=== PATIENT | female | born 1970 | race Caucasian/White ===

== ENCOUNTER 2017-03-08 06:17 | Emergency (ER) | payer OTHER ==
[2017-03-08 06:23] VITALS: BP 109/62; PULSE 82; TEMP 99.1; BMI 20.1
--- NOTE | 2017-03-08 06:54 | PDOC ---
History of Present Illness - General History Source: Patient Exam Limitations: No Limitations - History of Present Illness Initial Comments: 03/08/17 06:49 This is a 46-year-old female who comes in complaining of bleeding from her left ear. Patient denies any trauma to the ear. Patient said that as a child she had a long history of chronic otitis media however has little to said has not been a problem. Patient denies any recent upper respiratory tract infection. Patient said that her ear has been uncomfortable for the last couple a days but not painful. Patient said that shortly after that you begin to bleed she had acute onset of a migraine type headache that was associated with some vertigo and nausea.. Patient denies any vertigo at this time but is still complaining of some mild nausea and the headache. Patient denies any fevers or chills. Patient denies being on any blood thinners and says she is otherwise healthy. Patient denies any trauma to her head or ear. PAST MEDICAL HISTORY: no significant history PAST SURGICAL HISTORY: no significant history FAMILY HISTORY: no pertinant history SOCIAL HISTORY: Pt lives with family and is employed. MEDICATIONS: reviewed ALLERGIES: As per nursing notes Review of Systems General: No fevers or chills, no weakness, no weight loss HEENT: No change in vision. No sore throat,. No ear pain CardioVascular: No chest pain or shortness of breath Respiratory:No cough, or wheezing. Gastrointestinal: no nausea, vomitting, diarrhea or constipation, No rectal bleeding Genitourinary: No dysuria, hematuria, or frequency Musculoskeletal: No joint or muscle pain or swelling Neurologic: No headache, vertigo, dizziness or loss of consciousness Psychiatric: nor depression Skin: No rashes or easy bruising Endocrine: no increased thirst or abnormal weight change Allergic: no skin or latex allergy All other systems reviewed and normal GENERAL: The patient is awake, alert, and fully oriented, in no acute distress. HEAD: Normal with no signs of trauma. EARS: Left ear there is fresh blood with a blood clot in the external canal. Attempted to clean out the blood but it continues to come into the canal from behind the tympanic membrane. Unable to visualize the tympanic membrane secondary to the blood. Right tympanic membrane and external canal is normal. EYES: Pupils equal, round and reactive to light, extraocular movements intact, sclera anicteric, conjunctiva clear. EXTREMITIES: Normal range of motion, no edema. NEUROLOGICAL: Normal speech, normal gait. grossly intact PSYCH: Normal mood, normal affect. SKIN: Warm, Dry, normal turgor, no rashes or lesions noted. <Rudy Madison I - Last Filed: 03/08/17 06:49> <Anival Mast S - Last Filed: 03/08/17 08:54> - General Chief Complaint: Ear Problem Stated Complaint: LF EAR BLEEDING Time Seen by Provider: 03/08/17 06:40 Past History - Past Medical History Cancer: Yes (H/O CERVICAL CA) COPD: No - Surgical History Abdominal Surgery: Yes (RADICAL HYSTERECTOMY) - Suicide/Smoking/Psychosocial Hx Smoking History: Unknown if ever smoked Have you smoked in the past 12 months: No Number of Cigarettes Smoked Daily: 0 Information on smoking cessation initiated: No 'Breaking Loose' booklet given: 02/08/16 Hx Alcohol Use: No Drug/Substance Use Hx: No Substance Use Type: None <Rudy Madison I - Last Filed: 03/08/17 06:49> <Anival Mast S - Last Filed: 03/08/17 08:54> - Past Medical History Allergies/Adverse Reactions: Allergies Allergy/AdvReac Type Severity Reaction Status Date / Time No Known Allergies Allergy Verified 02/08/16 16:06 Home Medications: Ambulatory Orders Oxycodone HCl 10 mg PO TID 02/08/16 Sulfamethoxazole/Trimethoprim [Bactrim Ds Tablet] 1 each PO BID #14 tablet 03/08 *Physical Exam - Vital Signs Last Vital Signs Temp Pulse Resp BP Pulse Ox 99.1 F 82 14 109/62 98 03/08/17 06:20 03/08/17 06:20 03/08/17 06:20 03/08/17 06:20 03/08/17 06:20 <Rudy Madison I - Last Filed: 03/08/17 06:49> - Vital Signs Last Vital Signs Temp Pulse Resp BP Pulse Ox 99.1 F 82 14 109/62 98 03/08/17 06:20 03/08/17 06:20 03/08/17 06:20 03/08/17 06:20 03/08/17 06:20 <Anival Mast S - Last Filed: 03/08/17 08:54> Medical Decision Making - Medical Decision Making Patient endorsed to me by Dr Grant at shift change at 7 am. Patient alert, oriented x3 ambulatory in minimal distress My exam focused : l ear dry clogge blood in the left ear canal No signs of trauma, neuro intact. Awaiting for the CT as ordered by previuos physician <Anival Mast S - Last Filed: 03/08/17 08:54> *DC/Admit/Observation/Transfer <Rudy Madison I - Last Filed: 03/08/17 06:49> <Anival Mast S - Last Filed: 03/08/17 08:54> Diagnosis at time of Disposition: Bleeding from left ear - Discharge Dispostion Condition at time of disposition: Good - Referrals Referrals: Luba Waters [Primary Care Provider] - - Patient Instructions Printed Discharge Instructions: DI for Otitis Externa Additional Instructions: Follow up with your ENT MD. Avoid any Q tips in the ear - Post Discharge Activity
[2017-03-08] MEDS ORDERED: SULFAMETHOXAZOLE/TRIMETHOPRIM 800MG/160MG D.S. TABLET PO ONE (08:50)
[2017-03-08] MEDS ORDERED: SULFAMETHOXAZOLE/TRIMETHOPRIM 800MG/160MG D.S. TABLET ONE (08:51)
== END 2017-03-08 08:59 | disposition home or self-care (01) ==
LOC: FER 06:17
DX: H92.22 Otorrhagia, left ear (principal)
CPT/HCPCS: 70450-TC; 99282-25

== ENCOUNTER 2018-06-04 16:12 | Emergency (ER) | payer OTHER ==
[2018-06-04 16:27] VITALS: BP 107/76; PULSE 92; TEMP 97.3; BMI 21.3
--- NOTE | 2018-06-04 17:09 | PDOC ---
History of Present Illness - General Chief Complaint: Injury Stated Complaint: HEADACHE DIZZINESS NECK PAIN LEFT WRIST PAIN Time Seen by Provider: 06/04/18 16:34 - History of Present Illness Initial Comments: 48yo F with PMH of migraines and chronic back pain presenting with headache. Patient states she was outside six days ago when a large piece of ice fell on top of her head, left shoulder, and left forearm. She left the area, eager to go home, and about two hours after the incident, felt nauseous and had one episode of nonbloody nonbilious vomiting. Patient describes her headache as a "pressure" and rated at 6/10. She has taken ibuprofen and fioricet at home which has mildly improved her pain, but she decided to come into the ED because "I don't feel right." Denies focal neurologic deficits. She says this headache is different from her migraines in that her migraines are more severe. Patient also endorses neck pain which she has had chronically but is now worse after the ice falling on her. She also has left forearm pain as a result of where the ice hit her. Patient reports taking flexeril and oxycodone for her chronic back pain. Denies fevers, chills, chest pain, or shortness of breath. Past History - Past Medical History Allergies/Adverse Reactions: Allergies Allergy/AdvReac Type Severity Reaction Status Date / Time No Known Allergies Allergy Verified 06/04/18 16:13 Home Medications: Ambulatory Orders Oxycodone HCl 10 mg PO TID 02/08/16 Cyclobenzaprine HCl [Flexeril 10 mg] 10 mg PO TID 06/04/18 Cancer: Yes (H/O CERVICAL CA) COPD: No Other medical history: BACK PROBLEM - Surgical History Abdominal Surgery: Yes (RADICAL HYSTERECTOMY) - Suicide/Smoking/Psychosocial Hx Smoking History: Current every day smoker Have you smoked in the past 12 months: Yes Number of Cigarettes Smoked Daily: 10 Information on smoking cessation initiated: No 'Breaking Loose' booklet given: 02/08/16 Hx Alcohol Use: No Drug/Substance Use Hx: No Substance Use Type: None Review of Systems - Review of Systems Comments:: Constitutional: no fever, no chills HEENT: no throat pain, no dysphagia Cardiovascular: no chest pain, no palpitations Respiratory: no cough, no shortness of breath Gastrointestinal: no abdominal pain, no nausea Genitourinary: no dysuria, no frequency Musculoskeletal: +neck pain, +back pain Skin: no rash, no itching Neurologic: +headache, +lightheaded *Physical Exam - Vital Signs Last Vital Signs Temp Pulse Resp BP Pulse Ox 97.3 F L 92 H 16 107/76 100 06/04/18 16:13 06/04/18 16:13 06/04/18 16:13 06/04/18 16:13 06/04/18 16:13 - Physical Exam Comments: General: Awake, alert, and fully oriented, in no acute distress Head: No signs of trauma Eyes: EOMI, sclera anicteric ENT: Moist mucus membranes Neck: Normal ROM, supple Lungs: Lungs clear, Normal breath sounds Cardio: Regular rhythm, S1 and S2 present Abdomen: Soft, nontender. No guarding, no rebound, no masses Extremities: Normal range of motion, Distal pulses present SKIN: Warm, Dry, normal turgor Neurologic: Cranial nerves II through XII intact. Normal reflexes, speech, sensation, strength, coordination, and gait. Moderate Sedation - Procedure Monitoring Vital Signs: Procedure Monitoring Vital Signs Temperature 97.3 F L 06/04/18 16:13 Pulse Rate 92 H 06/04/18 16:13 Respiratory Rate 16 06/04/18 16:13 Blood Pressure 107/76 06/04/18 16:13 O2 Sat by Pulse Oximetry (%) 100 06/04/18 16:13 Medical Decision Making - Medical Decision Making 48yo F with PMH of migraines and chronic back pain presenting with headaches. DDX including but not limited to migraine headache, tension headache, brain bleed, post-concussive syndrome CT Head/C-spine ordered 975 Tylenol Lidocaine patch 06/04/18 16:58 Patient just got back from CT scan because technical support director is not readily available after 4pm and needed to be called in. Lidocaine patch application was delayed due to this reason. Patch is not applied. 06/04/18 18:31 CT head negative for acute pathology, per radiology report. 06/04/18 18:48 CT C-spine negative for acute pathology, per radiology report. Plan to discharge 06/04/18 19:07 *DC/Admit/Observation/Transfer Diagnosis at time of Disposition: Headache Qualifiers: Headache type: post-traumatic Headache chronicity pattern: acute headache Intractability: intractable Qualified Code(s): G44.311 - Acute post-traumatic headache, intractable - Discharge Dispostion Condition at time of disposition: Stable - Referrals Referrals: [facility] [Provider Group] - Patient Instructions Printed Discharge Instructions: DI for Post-traumatic Headache Additional Instructions: You came to the ED for a headache. CT imaging of your head and neck did not show acute pathology. You can take [id number] tylenol or motrin for your headache. Follow the instructions on the medication bottle. Follow-up with you primary care physician in 5-7 days to discuss this ED visit and to further evaluate your headache. Your care is not complete until you do so. Call and make an appointment. Medical attention is required if: you experience persistent symptoms, severe headache, have a seizure, or have focal numbness or weakness. If you think you are having an emergency, call for emergency medical services or present to the emergency department right away - Post Discharge Activity Forms/Work/School Notes: Back to Work
[2018-06-04] MEDS ORDERED: LIDOCAINE 5% TOPICAL PATCH TP ONE (17:15)
[2018-06-04] MEDS ORDERED: ACETAMINOPHEN 325 MG TABLET (FP) PO ONE (17:15)
[2018-06-04] MEDS ORDERED: LIDOCAINE 5% TOPICAL PATCH ONE (17:17)
[2018-06-04] MEDS ORDERED: ACETAMINOPHEN 325 MG TABLET (FP) ONE (17:17)
--- NOTE | 2018-06-04 17:48 | PDOC ---
Attending Attestation - Resident Resident Name: Vanessa Ortiz - ED Attending Attestation I have performed the following: I have examined & evaluated the patient, The case was reviewed & discussed with the resident, I agree w/resident's findings & plan, Exceptions are as noted - HPI HPI: 06/04/18 17:44 48 year old female with history of chronic back pain and migraines presents with ice block hitting her head. This incident occurred 6 days ago. States that it fell off a building and landed on her head. Does not think she had LOC, but did report 2 hours after incident of having squeezing and pounding headache with dizziness, lightheadedness, nausea, and fatigue. The patient has been taking fiorciet for her headache with some mild improvement. But was concerned that headache wasn't going away. States it doesn't feel like her migraines but reports felt like her prior concussions. Reports some mild neck pain as well, but denies numbness, weakness. - Physicial Exam PE: 06/04/18 18:03 GENERAL: Awake, alert, and fully oriented, in no acute distress HEAD: No signs of trauma EYES: EOMI, sclera anicteric, conjunctiva clear ENT: Auricles normal inspection, hearing grossly normal, nares patent, NECK: Normal ROM, supple, mild cervical discomfort on palpation. EXTREMITIES: Normal range of motion, no edema. No clubbing or cyanosis. No cords, erythema, or tenderness NEUROLOGICAL: Cranial nerves II through XII grossly intact. Normal speech, normal gait SKIN: Warm, Dry, normal turgor, no rashes or lesions noted. - Medical Decision Making 06/04/18 18:05 Vital Signs Temp Pulse Resp BP Pulse Ox 97.3 F L 92 H 16 107/76 100 06/04/18 16:13 06/04/18 16:13 06/04/18 16:13 06/04/18 16:13 06/04/18 16:13 Impression: likely concussion. However, obtain head CT to r/o ICH, skull fracture. CT C-spine to r/o fracture. Pain control and reassess. If workup is negative, needs follow up with a neurologist. Brain rest and follow up as an outpatient.
[2018-06-04] MEDS ORDERED: LIDOCAINE PATCH REMOVAL MC SCH (22:00)
== END 2018-06-04 19:07 | disposition home or self-care (01) ==
LOC: FER 16:12
DX: G44.311 Acute post-traumatic headache, intractable (principal); G89.29 Other chronic pain; F17.210 Nicotine dependence, cigarettes, uncomplicated; W20.8XXA Other cause of strike by thrown, projected or falling object, initial encounter; Y93.89 Activity, other specified; Y92.89 Other specified places as the place of occurrence of the external cause
CPT/HCPCS: 70450-TC; 72125-TC; 99281-25